=== PATIENT | female | born 1990 ===

== ENCOUNTER → 2018-05-22 | Outpatient (CLI) | payer OTHER ==
[~2018-05-22] MED LIST: MTR600X PO; No Home Medications; OXYC-57 PO
== END | disposition home or self-care (01) ==
LOC: C.PAPS 16:52
PROVIDERS: ATTEND Obstetrics & Gynecology
DX: Z12.4 Encounter for screening for malignant neoplasm of cervix (principal)

== ENCOUNTER 2020-04-20 18:57 | Inpatient (IN) ==
[2020-04-20] MEDS ORDERED: LACTATED RINGER'S 1,000 ML IV PRN (19:38)
[2020-04-20] MEDS ORDERED: OXYTOCIN 30 UNITS/500 ML BAG IV PRN (19:38)
[2020-04-20] MEDS ORDERED: LACTATED RINGER'S 1,000 ML IV SCH ×2 (19:45→23:26)
--- NOTE | 2020-04-20 19:50 | History & Physical Report ---
Date of Service April 20, 2020 Assessment & Plan (1) History of delivery, currently : Patient may be in early labor. She does demonstrate some cervical change. She is very painful and requesting c/s now instead of waiting until Sunday even if she is not in labor. Given that she is 39 1/7 weeks and her situation, will proceed with delivery. However, this is not urgent and will await nursing availability and for assist to come in, unless something acutely changes. Will plan for 9pm. History of Present Illness Chief Complaint: painful contractions Primary Care Provider: NO PCP Patient is a 29yof, with iup at 39 1/7 weeks who presents with painful contractions. Patient was in labor and delivery last night with contractions and ? lof. Was found not to be ruptured and not in labor. Was d/c home. Has a planned c/s on Sunday. Per the , they were supposed to have a c/s on Sunday but had to be moved to Sunday. She presented unannounced to the office this afternoon and noted that her contractions had spaced. She was ft/50--essentially unchanged. The patient notes her contractions are closer now, every 5-10 minutes. They are so painful she can't rest. She notes she is exhaused as she has not slept for two days. She is requesting delivery now and does not know if she is not in labor, how she can make it to Sunday. She has a covid pending. Allergies Allergy/AdvReac Type Severity Reaction Status Date / Time No Known Drug Allergies Allergy Unknown Verified 04/20/20 19:14 Home Medications Home Medications Medication Instructions Recorded Confirmed Type vit-iron fum-folic ac 1 tab PO DAILY 04/20/20 04/20/20 History [ Vitamin] Patient History Medical History Pelvic pain Surgical History H/O section Family History Father Hypertension Social History Preferred Language: [place]an Communication Ability: Effective Auxiliary Operator Required: No Beliefs That Will Affect Care: Cultural Cultural Beliefs: No men to enter door without asking marital status: marital status details: Yeni Alcala (32) [phone] Current Living Situation: Spouse and Family Current Living Situation Comment: lives with children and spouse, no pets current occupational status: unemployed current occupation: homemaker Other Information That Helps Us Care for You: No Feels Safe at Home: Yes Safety Concerns: Feels Safe At This Time Smoking Status: Never smoker Hx Alcohol Use: No Hx Substance Use: No OB History 10/30--c/s in [place], 6#6oz, "baby too big" 04/01--c/s here , failed shauna, 7#13oz CODING COORDINATOR History no stds, no abnl paps Review of Systems All systems reviewed & are unremarkable except as noted in HPI & below Physical Exam Constitutional: WD/WN, vitals as above Cardiovascular: Extremities: no calf tenderness and no edema Gastrointestinal (Abdomen): soft, gravid, nt Psychiatric: A+Ox3, euthymic affect Genitourinary: cx--1-2/90/-2 toco--q8-10 min efm--130s wtih mod variability, accels to 160s, no decels Results & Data ([facility]) Vital Signs (Past 12 Hours) Vital Signs Temp Pulse Resp BP 04/20/20 19:09 36.5 C 80 18 109/65 Code Status & VTE Plan VTE Prophylaxis Plan VTE Prophylaxis will be ordered: Yes Coding Level of Care Code None Diagnoses History of delivery, currently O34.219
[2020-04-20] MEDS ORDERED: CEFAZOLIN 2000MG 2,000 MG/15 ML SYR IV SCH (20:00)
[2020-04-20] MEDS ORDERED: CITRIC ACID/SODIUM CITRATE 15 ML UDC PO SCH (20:00)
[2020-04-20 20:06] LABS: Basophils # (auto) 0.01 K/uL (0-0.2); Basophils % (auto) 0.1 %; Eosinophils # (auto) 0.03 K/uL (0-0.5); Eosinophils % (auto) 0.3 %; Hemoglobin 12.6 g/dL (12.0-16.0); Immature Granulocytes # (auto) 0.03 K/uL (0.00-0.02); Immature Granulocytes % (auto) 0.3 %; Lymphocytes # (auto) 2.71 K/uL (1.2-3.4); Lymphocytes % (auto) 24.3 %; Mean Corpuscular Hemoglobin 30.3 pg (25-34); Mean Corpuscular Volume 91.3 fL (80-100); Monocytes # (auto) 0.57 K/uL (0.11-0.59); Monocytes % (auto) 5.1 %; Neutrophils # (auto) 7.81 K/uL (1.4-6.5); Neutrophils % (auto) 69.9 %; Platelet Count 232 K/uL (130-400); RDW Coefficient of Variation 14.2 % (11.5-14.5); Red Blood Count 4.16 M/uL (4.2-5.4); White Blood Count 11.16 K/uL (4.8-10.8)
--- NOTE | 2020-04-20 20:16 | Anesthesiology Consultation ---
Date of Service April 20, 2020 Assessment & Plan (1) Encounter for pre-operative examination: Chart Review Chart Review: Acceptable Risk for Surgery Consults Requested none ASA ASA2 Proposed Anesthesia Anesthesia Type: Spinal Risk / Benefits Reviewed With: PT / POA / Parent / Guardian, Accepts Plan and Informed Consent Obtained History Height/Weight Height: 5 ft 6.93 in Weight: 84 kg Allergies Allergy/AdvReac Type Severity Reaction Status Date / Time No Known Drug Allergies Allergy Unknown Verified 04/20/20 19:14 Medications Home Medications Medication Instructions Recorded Confirmed Last Taken vit-iron fum-folic ac 1 tab PO DAILY 04/20/20 04/20/20 04/19/20 08:00 [ Vitamin] Active Medications Generic Name Dose Route Start Last Admin Trade Name Freq PRN Reason Stop Dose Admin Lactated Ringer's 1,000 mls @ 999 mls/hr 04/20/20 19:45 04/20/20 20:10 Lr IV 04/20/20 20:45 999 mls/hr .Q1H1M ARACELY Administration NPO Date Last Intake of Fluids: 04/20/20 Time Last Intake of Fluids: 18:30 Date Last Intake of Solids: 04/20/20 Time Last Intake of Solids: 16:30 Past Medical History Medical History Pelvic pain Exercise / Class Metabolic Activity II 4-5 Yardwork/Stairs/Walk up hill Past Family History Family History Father Hypertension Past Surgical History Surgical History H/O section Past Anesthesia History No Hx of Anesthesia Complications and No Family Hx of Anesthesia Complications History of PONV No Hx of PONV and No Hx of Motion Sickness Social History Smoking Status: Never smoker Hx Alcohol Use: No Hx Substance Use: No Physical Exam Vital Signs Last Vital Signs Temp 97.7 F 04/20/20 19:09 Pulse 80 04/20/20 19:09 Resp 18 04/20/20 19:09 BP 109/65 04/20/20 19:09 ENMT Mouth: no dentition abnormality Thyromental Distance: > or= 3.5 Finger Breadths Mallampati Class: II Neck normal visual inspection Respiratory normal respiratory effort Auscultation: lungs clear to auscultation bilaterally Cardiovascular Rate/Rhythm: regular rate and regular rhythm Testing Laboratory Results 04/20/20 19:53
[2020-04-20 20:17] LABS: Mean Corpuscular Hgb Conc 33.2 g/dL (32-36)
[2020-04-20] MEDS ORDERED: MoRPHine SULFATE PF 1 MG/ML 10 ML AMP/VIAL ONE (20:20)
[2020-04-20] MEDS ORDERED: fentaNYL citrate 100 MCG/2 ML VIAL ONE (20:20)
[2020-04-20] MEDS ORDERED: OXYTOCIN 10 UNITS/ML VIAL ONE (20:23)
[2020-04-20] MEDS ORDERED: LIDOCAINE/EPINEPHRINE 1% 20 ML VIAL ONE (20:43)
[2020-04-20] MEDS ORDERED: TRIAMCINOLONE ACET 40 MG/ML VIAL IM SCH (21:15)
[2020-04-20] MEDS ORDERED: LIDOCAINE/EPINEPHRINE 1% INJ 50 ML VIAL INFIL SCH (21:15)
[2020-04-20] MEDS ORDERED: PHENYLEPHRINE 100MCG/ML 5ML SYR ONE (21:51)
[2020-04-20] MEDS ORDERED: NALOXONE HCL 1 MG in SODIUM CHLORIDE 0.9% 1000ML 1,000 ML IV PRN (21:54)
[2020-04-20] MEDS ORDERED: LACTATED RINGER'S 500 ML IV PRN (21:54)
[2020-04-20] MEDS ORDERED: NALOXONE HCL 0.08 MG in SYRINGE 1.8 ML IV PRN (21:54)
[2020-04-20] MEDS ORDERED: NALOXONE HCL 0.4 MG/1 ML VIAL/CARP IV PRN (21:54)
[2020-04-20] MEDS ORDERED: MoRPHine SULFATE PF 1 MG/ML 10 ML AMP/VIAL INT SPINAL ONE (21:54)
[2020-04-20] MEDS ORDERED: DiphenhydrAMINE HCL 50 MG/ML VIAL IV PRN (21:54)
[2020-04-20] MEDS ORDERED: ePHEDrine sulfate 50 MG/ML AMP IV PRN (21:54)
[2020-04-20] MEDS ORDERED: MEPERIDINE HCL 25 MG/ML CARP/VIAL IV PRN (21:54)
[2020-04-20] MEDS ORDERED: NO NARCOTICS OR SEDATIVES SCH (22:00)
[2020-04-20] MEDS ORDERED: SODIUM CHLORIDE 0.9% 1000ML 1,000 ML IV SCH (22:00)
[2020-04-20] MEDS ORDERED: ePHEDrine sulfate 50 MG/ML SYR ONE (22:00)
--- NOTE | 2020-04-20 22:41 | Post Operative Brief Note ---
PG Immediate Post Op with CF Date of Surgery April 20, 2020 Pre & Post Diagnosis Operation Date: 04/20/20 21:30 Pre-Op Diagnosis: Intrauterine at 39.1 weeks History of section times three Early labor Post-Op Diagnosis: Intrauterine at 39.1 weeks History of section times three Early labor I identified the patient and participated in the time-out.: Yes Procedure Operation Date: 04/20/20 21:30 Actual Procedures p Section in LD(Bilateral) - Sumaya George MD, FACOG Surgeon Sumaya George MD, FACOG Cheese Processor Dr. Murry Estimated Blood Loss 600 Findings Consistent with Post-Op Diagnosis Drains Castillo Catheter
[2020-04-20 22:59] LABS: Base Excess Cord Arterial Bld -1.7 mEq/L (-9-1.8); CO2 Cord Arterial Blood 38 mmHg (39.1-73.5); HCO3 Cord Arterial Blood 23 mmol/L (19.7-28.5); Oxygen Sat Cord Arterial Blood 67.1 % (<60); PO2 Cord Arterial Blood 33 mmHg (4.1-31.7)
[2020-04-20 23:02] LABS: Base Excess Cord Venous Blood -1.3 mEq/L (-7.7-1.9); Cord Venous Blood HCO3 23 mmol/L (18.4-26.8); Cord Venous Blood PCO2 39 mmHg (30.4-57.2); Cord Venous Blood PO2 32 mmHg (14.1-43.3); Cord Venous Blood pH 7.39 (7.20-7.44)
[2020-04-20] MEDS ORDERED: SUPERCREAM 0.870% 15 GM JAR EXT PRN (23:26)
[2020-04-20] MEDS ORDERED: HYDROCORTISONE ACETATE 25 MG SUPP PR PRN (23:26)
[2020-04-20] MEDS ORDERED: BENZOCAINE 20% AER SPR 82.5 GM CAN EXT PRN (23:26)
[2020-04-20] MEDS ORDERED: SENNA 8.6 MG TAB PO PRN (23:26)
[2020-04-20] MEDS ORDERED: MAGNESIUM HYDROXIDE SUSP 30 ML UDC PO PRN (23:26)
[2020-04-20] MEDS ORDERED: DIPHTHERIA/TETANUS/PERTUSSIS 0.5 ML SYR/VIAL IM ONE (23:26)
[2020-04-21] MEDS: OXYTOCIN 20 UNITS in LACTATED RINGER'S 1,000 ML IV SCH ×2 (00:47→08:15)
--- NOTE | 2020-04-21 02:19 | Operative Report (OR) ---
DATE OF OPERATION: 04/20/2020 PREOPERATIVE DIAGNOSES: 1. Intrauterine at 39 and 1/7th weeks. 2. History of previous section x2. 3. Early labor. POSTOPERATIVE DIAGNOSES: 1. Intrauterine at 39 and 1/7th weeks. 2. History of previous section x2. 3. Early labor. PROCEDURE: Repeat lower transverse section with excision of keloid scar. SURGEON: Sumaya George MD. [employer]: Dr. Murry. ANESTHESIA: Spinal. ESTIMATED BLOOD LOSS: 600 mL. FLUIDS: 2 liters. URINE OUTPUT: Clear yellow urine draining from the bladder at the end of the procedure. INDICATIONS: The patient is a 3, para 2-0-0-2, with history of previous section x2. She is scheduled for repeat on Sunday, but presented Sunday evening in early labor and so we are proceeding with section now. FINDINGS: Uterus, tubes and ovaries were normal bilaterally. There was a mildly keloided scar on the anterior abdominal wall. We had a viable female with Apgars of 9 and 9, weight pending. COMPLICATIONS: None. DRAINS: Castillo. DISPOSITION: To Recovery Room in stable condition. DESCRIPTION OF PROCEDURE: The patient was taken to the Operating Room where she was identified verbally and by bracelet. She was seated on the operating table where spinal anesthetic was placed. She was then placed in dorsal supine position with a leftward tilt. A Castillo catheter was placed sterilely. She was prepped and draped in normal sterile fashion. Her anesthetic was tested and found to be adequate. A time-out was done identifying correct patient, procedure, positioning and preoperative antibiotic was given. There were no concerns. The Pfannenstiel incision that is healed with some keloiding was excised using the knife. Bleeding was attended to with Bovie electrocautery in the subcuticular tissue. The knife was then used to go down to the fascia. The fascia was incised in the midline with the knife. It was taken out laterally with scissors. The superior edge of the fascial incision was grasped, elevated and the underlying layer of rectus muscle was taken off bluntly and with scissors. In a similar fashion, the inferior edge of the fascial incision was grasped, elevated and the underlying layer of rectus muscle was taken off bluntly and with scissors. The midline was identified and we were able to use the finger to bluntly dissect through the peritoneum into the abdominal cavity. The incision was stretched with the bloom conveyor operator's hands. The bladder blade was placed. A bladder flap was created by grasping the vesicouterine peritoneum and entering with scissors. The bladder flap was created digitally. The bladder blade was replaced. Hysterotomy and skin incision was scored with the knife and the uterus was entered. There was clear fluid. The incision was stretched cephalad and caudad with the bloom conveyor operator's fingers. The bloom conveyor operator's hand was gently placed into the uterine cavity and the head was gently lifted through the incision. The rest of the was then delivered with fundal pressure. There was no nuchal cord. The nose and mouth were bulb suctioned and then the rest of the infant was delivered with fundal pressure. There was immediate cry. The cord was clamped and cut and the infant was handed off to waiting pediatricians for drying and attention. Cord blood and gases were obtained. The placenta was manually extracted. The uterus was exteriorized and cleared of all clot and debris with moistened laparotomy sponges. The hysterotomy incision was repaired in 2 layers, the first in a running locked layer, the second in an imbricating layer. Hemostasis was noted to be good. The posterior cul-de-sac was irrigated and cleared of all clot and debris. The hysterotomy incision was again inspected and found to be intact. The uterus was hemostatic. The hysterotomy incision was again inspected and found to be intact and hemostatic. The muscles were reapproximated with several interrupted sutures of 0 Vicryl in the midline. The fascia was reapproximated with 0 Vicryl starting at the corners and meeting in the midline. The subcuticular tissue was irrigated. It was undermined slightly with Bovie cutting and then the incision edges were infiltrated with Kenalog 40 and 1% lidocaine with epinephrine in 1 mL to 4 mL concentration, approximately 2.5 mL of this was used in the subcuticular tissue around the incision. The incision was then reapproximated with a 4-0 Monocryl in a subcuticular fashion. All sponge, lap and needle counts were correct x2. The patient tolerated the procedure well and was taken to the Recovery Room in stable condition. I attest to the content of the Intraoperative Record and any orders documented therein. Any exceptions are noted below. AYO
[2020-04-21] MEDS: KETOROLAC 30 MG/ML VIAL IV PRN ×2 (02:46→10:20)
[2020-04-21 06:17] LABS: Basophils # (auto) 0.03 K/uL (0-0.2); Basophils % (auto) 0.3 %; Eosinophils # (auto) 0.07 K/uL (0-0.5); Eosinophils % (auto) 0.6 %; Hematocrit (blood only) 37.3 % (37-47); Hemoglobin 12.4 g/dL (12.0-16.0); Immature Granulocytes # (auto) 0.04 K/uL (0.00-0.02); Immature Granulocytes % (auto) 0.3 %; Lymphocytes # (auto) 2.81 K/uL (1.2-3.4); Lymphocytes % (auto) 23.7 %; Mean Corpuscular Hemoglobin 30.7 pg (25-34); Mean Corpuscular Hgb Conc 33.2 g/dL (32-36); Mean Corpuscular Volume 92.3 fL (80-100); Mean Platelet Volume 12.1 fL (7.4-10.4); Monocytes # (auto) 0.68 K/uL (0.11-0.59); Monocytes % (auto) 5.7 %; Neutrophils # (auto) 8.22 K/uL (1.4-6.5); Neutrophils % (auto) 69.4 %; Platelet Count 187 K/uL (130-400); RDW Coefficient of Variation 14.2 % (11.5-14.5); Red Blood Count 4.04 M/uL (4.2-5.4); White Blood Count 11.85 K/uL (4.8-10.8)
--- NOTE | 2020-04-21 06:45 | Obstetrical Progress Note ---
Date of Service April 21, 2020 Assessment & Plan (1) S/P section: Doing well. Routine care. Montiel out later. adat. ambulate later today. Subjective Ambulation: limited ambulation (has not ambulated) Voiding: montiel catheter in place Passing Gas:: No Diet Tolerance:: clear liquids Feeding Type:: breast feeding is less than 12 hours from c/s. good uop. Physical Exam Constitutional WD/WN, vitals as above Cardiovascular Extremities: no calf tenderness and no edema Gastrointestinal (Abdomen) soft, nd, nt ff/nt at u dressing clean Psychiatric A+Ox3, euthymic affect Results & Data ([facility]) Vital Signs (Past 12 Hours) Vital Signs Temp Pulse Pulse Resp BP BP Pulse Ox 04/21/20 06:30 16 97 04/21/20 05:30 16 98 04/21/20 04:20 16 96 04/21/20 03:55 36.9 C 60 16 92/50 L 96 04/21/20 02:30 16 100 04/21/20 01:00 18 100 04/21/20 00:47 59 L 100 04/21/20 00:42 56 L 100 04/21/20 00:37 36.4 C L 49 L 18 111/72 98 04/21/20 00:32 51 L 99 04/21/20 00:27 51 L 107/72 100 04/21/20 00:22 48 L 99 04/21/20 00:18 54 L 104/66 04/21/20 00:17 51 L 99 04/21/20 00:12 55 L 99 04/21/20 00:08 45 L 107/67 04/21/20 00:07 47 L 16 99 04/21/20 00:02 52 L 98 04/20/20 23:58 54 L 106/65 04/20/20 23:57 58 L 99 04/20/20 23:52 57 L 98 04/20/20 23:47 52 L 107/64 98 04/20/20 23:42 56 L 98 04/20/20 23:37 56 L 18 108/63 97 04/20/20 23:32 54 L 97 04/20/20 23:27 58 L 18 108/61 98 04/20/20 23:22 57 L 97 04/20/20 23:17 54 L 18 107/62 98 04/20/20 23:12 64 98 04/20/20 23:07 62 18 101/57 L 98 04/20/20 23:02 68 97 04/20/20 23:00 64 104/56 L 04/20/20 22:57 65 18 98 04/20/20 22:52 65 98 04/20/20 22:47 65 18 108/58 L 98 04/20/20 22:42 78 97 04/20/20 22:37 36.3 C L 74 18 104/59 L 99 04/20/20 19:09 36.5 C 80 18 109/65
--- NOTE | 2020-04-21 06:57 | Anesthesiology Progress Note ---
Date of Service April 21, 2020 Anesthesia Post Procedure Vital Signs Vital Signs: Temp Pulse Pulse Resp BP BP Pulse Ox 04/21/20 06:30 16 97 04/21/20 05:30 16 98 04/21/20 04:20 16 96 04/21/20 03:55 98.4 F 60 16 92/50 L 96 04/21/20 02:30 16 100 04/21/20 01:00 18 100 04/21/20 00:47 59 L 100 04/21/20 00:42 56 L 100 04/21/20 00:37 97.5 F L 49 L 18 111/72 98 04/21/20 00:32 51 L 99 04/21/20 00:27 51 L 107/72 100 04/21/20 00:22 48 L 99 04/21/20 00:18 54 L 104/66 04/21/20 00:17 51 L 99 04/21/20 00:12 55 L 99 04/21/20 00:08 45 L 107/67 04/21/20 00:07 47 L 16 99 04/21/20 00:02 52 L 98 04/20/20 23:58 54 L 106/65 04/20/20 23:57 58 L 99 04/20/20 23:52 57 L 98 04/20/20 23:47 52 L 107/64 98 04/20/20 23:42 56 L 98 04/20/20 23:37 56 L 18 108/63 97 04/20/20 23:32 54 L 97 04/20/20 23:27 58 L 18 108/61 98 04/20/20 23:22 57 L 97 04/20/20 23:17 54 L 18 107/62 98 04/20/20 23:12 64 98 04/20/20 23:07 62 18 101/57 L 98 04/20/20 23:02 68 97 04/20/20 23:00 64 104/56 L 04/20/20 22:57 65 18 98 04/20/20 22:52 65 98 04/20/20 22:47 65 18 108/58 L 98 04/20/20 22:42 78 97 04/20/20 22:37 97.3 F L 74 18 104/59 L 99 04/20/20 19:09 97.7 F 80 18 109/65 Pain Intensity Bilateral Abdomen: Pain Intensity: 1 Transfer of Care Handoff Completed per policy Notes Mental Status: alert / awake / arousable and participated in evaluation Nausea / Vomiting: adequately controlled Pain: adequately controlled Airway Patency, RR, SpO2: stable & adequate BP & HR: stable & adequate Hydration State: stable & adequate Neuraxial Anesthesia: was administered and sensory block resolved Anesthetic Complications: no major complications apparent and Pt Satisfied with anesthetic care
[2020-04-21] MEDS: SIMETHICONE 80 MG CHEW PO SCH ×4 (08:15→20:02)
[2020-04-21] MEDS: PRENATAL VITAMIN 1 TAB PO SCH (08:15)
[2020-04-21] MEDS: FERROUS SULFATE 325 MG TAB PO SCH (08:15)
[2020-04-21] MEDS: DOCUSATE SODIUM 100 MG CAP PO SCH ×2 (08:15→20:02)
[2020-04-21] MEDS ORDERED: DC INTRASPINAL MORPHINE SCH (15:54)
[2020-04-21] MEDS ORDERED: KETOROLAC 30 MG/ML VIAL IV PRN (15:54)
[2020-04-21] MEDS ORDERED: MEPERIDINE HCL 50 MG/ML CARP IV PRN (15:55)
[2020-04-21] MEDS ORDERED: DiphenhydrAMINE HCL 50 MG/ML VIAL IV PRN (15:55)
[2020-04-21] MEDS ORDERED: ONDANSETRON INJ 2 MG/ML 2 ML VIAL IV PRN (15:55)
[2020-04-21] MEDS ORDERED: PROMETHAZINE HCL 25 MG in SODIUM CHLORIDE 0.9% 50 ML IV PRN (15:55)
[2020-04-21] MEDS: OXYCODONE/ACETAMINOPHEN 5mg/325mg TAB PO PRN (17:08)
[2020-04-21] MEDS: IBUPROFEN 600 MG TAB PO PRN (17:09)
[2020-04-21] MEDS ORDERED: bisacodyL 5 MG TABEC PO SCH (20:00)
[2020-04-22] MEDS: IBUPROFEN 600 MG TAB PO PRN ×3 (03:28→19:00)
[2020-04-22 06:00] LABS: Hemoglobin 12.5 g/dL (12.0-16.0)
[2020-04-22] MEDS: DOCUSATE SODIUM 100 MG CAP PO SCH ×2 (08:20→20:50)
[2020-04-22] MEDS: SIMETHICONE 80 MG CHEW PO SCH ×4 (08:20→20:50)
[2020-04-22] MEDS: FERROUS SULFATE 325 MG TAB PO SCH (08:20)
[2020-04-22] MEDS: PRENATAL VITAMIN 1 TAB PO SCH (08:20)
--- NOTE | 2020-04-22 08:40 | Obstetrical Progress Note ---
Date of Service April 22, 2020 Assessment & Plan (1) S/P section: Subjective Ambulation: ambulating normally Voiding: no voiding problems Passing Gas:: Yes Diet Tolerance:: regular diet Lochia:: Small Feeding Type:: breast feeding Physical Exam Constitutional WD/WN, vitals as above Eyes PERRL, conjunctivae normal, anicteric sclerae Neck normal visual inspection Respiratory normal respiratory effort and able to speak in complete sentences; no respiratory distress and no labored breathing Cardiovascular Rate/Rhythm: regular rate and regular rhythm Extremities: no edema Chest (Breasts) Chest: normal inspection of chest Gastrointestinal (Abdomen) Inspection/Auscultation: abdomen normal to inspection Soft, postgravid Incision c/d/i Psychiatric A+Ox3, euthymic affect Genitourinary OB Exam Abdomen: + fundal height Fundus: + firm and + relation to umbilicus (fundus just below umbilicus); not tender Results & Data ([facility]) Vital Signs (Past 12 Hours) Vital Signs Temp Pulse Resp BP Pulse Ox 04/22/20 01:00 98.6 F 66 17 97/57 L 95
[2020-04-22] MEDS ORDERED: bisacodyL 10 MG SUPP PR PRN (22:38)
--- NOTE | 2020-04-23 06:53 | Obstetrical Progress Note ---
Date of Service April 23, 2020 Assessment & Plan (1) S/P section: - pt desires d/c - instructions given - f/u in 6 weeks Subjective Ambulation: ambulating normally Voiding: no voiding problems Feeding Type:: breast feeding Physical Exam Constitutional WD/WN, vitals as above Respiratory normal respiratory effort, lungs clear to auscultation Cardiovascular RRR, no murmur, no edema Chest (Breasts) Additional Comments: Breasts: engorged, swelling in left axilla ancillary breast tissue Gastrointestinal (Abdomen) Incision intact, appropriate post-op tenderness Musculoskeletal (-) deep calf tenderness Results & Data ([facility]) Vital Signs (Past 12 Hours) Vital Signs Temp Pulse Resp BP 04/22/20 23:50 98.6 F 72 18 96/57 L 04/22/20 19:50 98.4 F 71 20 95/56 L
[2020-04-23] MEDS: PRENATAL VITAMIN 1 TAB PO SCH (08:29)
[2020-04-23] MEDS: FERROUS SULFATE 325 MG TAB PO SCH (08:29)
[2020-04-23] MEDS: SIMETHICONE 80 MG CHEW PO SCH ×2 (08:29→12:30)
[2020-04-23] MEDS: DOCUSATE SODIUM 100 MG CAP PO SCH (08:29)
[2020-04-23] MEDS: IBUPROFEN 600 MG TAB PO PRN (13:30)
[2020-04-23] MEDS: OXYCODONE/ACETAMINOPHEN 5mg/325mg TAB PO PRN (13:31)
--- NOTE | 2020-04-27 10:21 | Discharge Summary (DS) ---
ADMISSION DIAGNOSES: 1. Intrauterine at 39 and 1/7 weeks. 2. History of previous section x2. 3. History of early labor. DISCHARGE DIAGNOSES: Same. PROCEDURES: Repeat lower transverse section. HISTORY OF PRESENT ILLNESS: The patient is a 29-year-old female 3, para 2-0-0-2, with intrauterine at 39 and 1/7 weeks, who presents with painful contractions. She has a history of previous section x2 and is scheduled for repeat section this coming Sunday. She needed to be moved from Sunday to Sunday for scheduling issues. The patient was in labor and delivery the previous night with contractions and leaking of fluid and was found not to be ruptured and not in labor and she was discharged home. She presented unannounced to the office the afternoon of admission and noted her contractions had spaced. She was fingertip and 50%, essentially unchanged. The patient presents to labor and delivery, noting her contractions are closer now every 5-10 minutes. They are so painful she cannot rest. She notes that she is exhausted and has not slept for 2 days. She is requesting delivery now and does not know if she can make it until Sunday COVID pending. For the rest of patient's detailed history and physical please see her history and physical. On physical exam her cervix is 1-2 cm dilated, 90%, -2. She is susanne every 8-10 minutes and the external monitor shows the baby to be in the 130s with moderate variability, accels to 160 and no decels. ASSESSMENT: This is a patient who appears to perhaps be in early labor. She has demonstrated some cervical change since her visit this afternoon. She is very painful and requesting section now instead of waiting until Sunday even if she is not in labor. Given that she is 39 and 1/7th weeks and her situation all have agreed to proceed with delivery. HOSPITAL COURSE: The patient was admitted and underwent a repeat lower transverse section with excision of her keloid scar. Dr. Murry was the assist. Findings at the time of surgery revealed normal uterus, tubes, and ovaries bilaterally. There was a mildly keloided scar on the anterior abdominal wall. We delivered a viable female infant with Apgars of 9 and 9. The patient's postoperative course was uncomplicated. She tolerated a regular diet, ambulated without difficulty, voided after the removal of her Castillo catheter and had her pain well controlled on oral pain medications. She was discharged home on postoperative day 2 10/16 with routine discharge instructions. Her discharge H&H was 12.5 and 38.0. She will return in 6 weeks for evaluation.
== END 2020-04-23 14:10 | disposition home or self-care (01) | DRG 788 ==
LOC: OPB 18:57 → 4S1 18:59 → 4S2 04-21 01:05